=== PATIENT | female | born 1985 | race Caucasian/White ===

== ENCOUNTER 2021-06-21 14:29 | Outpatient (CLI) | payer BC, SELFPAY ==
[2021-06-21 15:25] LABS: Alanine Aminotransferase 34 U/L (4-35); Albumin Level 4.8 g/dL (3.5-5.1); Alkaline Phosphatase 80 U/L (38-126); Anion Gap 10 mmol/L (8-16); Aspartate Amino Transferase 31 U/L (14-36); Bilirubin,Total 0.4 mg/dL (0.2-1.3); Blood Urea Nitrogen 11 mg/dL (7-17); Calcium 9.3 mg/dL (8.4-10.2); Carbon Dioxide 23 mmol/L (22-30); Chloride 106 mmol/L (98-107); Cholesterol 219 mg/dL (0-200); Estimated Glomerular Filt Rate > 60; Glucose 105 mg/dL (65-110); HDL Direct 45 mg/dL; Sodium 139 mmol/L (137-145); Triglycerides 184 mg/dL (<150)
[2021-06-21 15:36] LABS: LDL Cholesterol Direct 140 mg/dL
== END 2021-06-21 14:30 | disposition home or self-care (01) ==
LOC: ANHLAB 14:34
PROVIDERS: PCP Family Medicine Adolescent Medicine; Visit Provider Physician Assistant
DX: F41.9 Anxiety disorder, unspecified (principal); Z13.220 Encounter for screening for lipoid disorders
CPT/HCPCS: 36415; 80053; 80061; 84443

== ENCOUNTER 2022-02-22 20:51 | Emergency (ER) | payer BC, SELFPAY ==
[2022-02-22 21:09] VITALS: BP 132/117; PULSE 89; RESP 16; TEMP 36.6; O2SAT 100
--- NOTE | 2022-02-22 21:23 | ED.DENTAL ---
HPI - Dental/Oral General Chief complaint: Allergic Reaction Stated complaint: possible allergic reaction-swelling Time Seen by Provider: 02/22/22 20:54 Source: patient, family and RN notes reviewed Mode of arrival: ambulatory Limitations: no limitations History of Present Illness Complaint: tooth pain Onset (ago): day(s) (3) Duration: constant Severity: mild Severity scale (1-10): 2 Relieving factors: NSAIDs Exacerbating factors: chewing Context: history of dental caries and poor dental care Associated symptoms: other (pt had left facial swelling, mild with no evident localized or generalized allergic sxs.) Related Data Home Medications Medication Instructions Recorded Confirmed amoxicillin 500 mg capsule 500 cap PO USEASDIRECTD 02/22/22 02/22/22 Allergies Allergy/AdvReac Type Severity Reaction Status Date / Time No Known Allergies Allergy Verified 02/22/22 21:17 Review of Systems Review of Systems: All systems reviewed & are unremarkable except as noted in HPI and below PMFSH Past Medical History Medical History Swelling of left side of face Toothache Exam Const: General: no acute distress and alert Nutritional Appearance: well nourished Orientation/consciousness: patient oriented x3 Limitations: no limitations HENMT: Head: normal to inspection Ears: external ears normal, TM's normal bilaterally and EAC's normal General nose exam: Normal external nose present and Normal nares present Face and sinus: sinuses nontender Mouth: Yes moist mucous membranes Teeth and gingiva: abnormal tooth and associated gingiva (multiple carious teeth. left facial swelling mild.) Throat: posterior oropharynx normal Eyes: Conjunctivae: conjunctivae normal Pupils: Equal, round and reactive pupils present EOM: EOMs intact bilaterally Neck: Neck: normal visual inspection and no lymphadenopathy Chest: Chest palpation & inspection: normal inspection of the chest Resp: Effort & Inspection: normal respiratory effort Auscultation: clear to auscultation bilaterally Cardio: Rate: regular rate Rhythm: regular rhythm GI: GI Palp: Yes Soft to palpation and No Tenderness to palpation present (GI) Auscultation: normal bowel sounds : General: Yes bladder normal to palpation and Yes no CVA tenderness Back/Spine/Pelvis: Back: no CVA tenderness Skin: General skin exam: normal color Rashes: no rashes Wounds: no wounds Neuro: General: patient oriented x3, moves all extremities, no meningeal signs, no focal motor deficits and CN's II-XI intact bilaterally Speech: normal speech Gait exam (Neuro): Normal gait present Extrem: General: normal to inspection, no clubbing, cyanosis or edema and no pedal edema Psych: Mental Status: mental status grossly normal Affect: normal affect Attitude: cooperative Course Course Emergency Course: Pt was stable in the ED. no allergic reaction. Reevaluation(s) Date: 02/22/22 Time: 21:12 Vital Signs Vital signs: Vital Signs Temperature 36.6 C 02/22/22 21:09 Pulse Rate 89 02/22/22 21:09 Respiratory Rate 16 02/22/22 21:09 Blood Pressure 132/117 H 02/22/22 21:09 Pulse Oximetry 100 02/22/22 21:09 Oxygen Delivery Room Air 02/22/22 21:09 Temperature 36.6 C 02/22/22 21:09 Pulse Rate 89 02/22/22 21:09 Respiratory Rate 16 02/22/22 21:09 Blood Pressure 136/92 H 02/22/22 21:55 Pulse Oximetry 100 02/22/22 21:09 Oxygen Delivery Room Air 02/22/22 21:09 Critical Care Time Critical Care Time Critical Care Time: No Total Critical Care Time: 0 Discharge Plan Discharge Clinical Impression: Toothache, Swelling of left side of face Patient Disposition: Home, Self-Care Condition: Stable Instructions: Antibiotic Form, Toothache (ED) Additional Instructions: Home. May RTC prn. Dentist or PMD in 1-2 days. Continue meds. Prescriptions: No Action amoxicillin 500 mg ca
[2022-02-22] MEDS: ACETAMINOPHEN 325 MG TABLET 650 MG PO (21:38)
[2022-02-22 21:55] VITALS: BP 136/92
== END 2022-02-22 22:05 | disposition home or self-care (01) ==
PROVIDERS: Emergency Provider Emergency Medicine; PCP Family Medicine Adolescent Medicine
DX: K08.89 Other specified disorders of teeth and supporting structures (principal); M79.89 Other specified soft tissue disorders
CPT/HCPCS: 99281; A9270

== ENCOUNTER 2024-06-17 08:25 | Outpatient (CLI) | payer BC, SELFPAY ==
--- NOTE | ~2024-06-17 | XR_ITS ---
EXAMINATION: XR hip LT min 2V DATE: 06/17/2024 08:52 INDICATION: Left hip pain. TECHNIQUE: 2 views of left hip were obtained. COMPARISON: None. FINDINGS: Alignment is normal. No fracture. There is mild left hip osteoarthritis. IMPRESSION: 1. Mild left hip osteoarthritis. Reviewed, dictated and finalized at location A.
== END 2024-06-17 08:26 | disposition home or self-care (01) ==
LOC: CHSIMG 08:28
PROVIDERS: PCP Physician Assistant; Visit Provider Physician Assistant
DX: M25.552 Pain in left hip (principal); M16.12 Unilateral primary osteoarthritis, left hip
CPT/HCPCS: 73502

== ENCOUNTER 2024-07-06 08:53 | Outpatient (CLI) | payer BC, SELFPAY ==
[2024-07-06 09:31] LABS: Basophils Absolute Auto 0.05 K/mm3 (0.00-0.10); Basophils Percent Auto 0.5 % (0.0-1.0); Eosinophils Absolute Auto 0.43 K/mm3 (0.02-0.50); Eosinophils Percent Auto 4.4 % (1.0-6.0); Hematocrit 42.8 % (35.0-49.0); Hemoglobin 14.3 g/dL (12.0-15.0); Immature Granulocyte Absolute 0.03 K/mm3 (0.00-0.00); Immature Granulocyte Percent A 0.3 % (0.0-0.0); Lymphocytes Absolute Auto 2.58 K/mm3 (1.10-4.50); Lymphocytes Percent Auto 26.5 % (18.0-42.0); Mean Corpuscular HGB Conc 33.4 g/dL (32-36); Mean Corpuscular Hemoglobin 31.6 pg (27.0-31.0); Mean Corpuscular Volume 94.7 fL (78.0-102.0); Mean Platelet Volume 9.1 fl (9.2-11.8); Monocytes Absolute Auto 0.66 K/mm3 (0.10-0.90); Monocytes Percent Auto 6.8 % (2.0-11.0); Neutrophils Absolute Auto 5.98 K/mm3 (1.70-7.20); Neutrophils Percent Auto 61.5 % (50.0-70.0); Platelet Count Result 340 K/mm3 (150-420); Red Blood Count 4.52 M/mm3 (4.20-5.40); White Blood Count 9.7 K/mm3 (4.8-10.8)
[2024-07-06 09:39] LABS: Hemoglobin A1C 5.3 % (<5.7)
[2024-07-06 10:17] LABS: Alanine Aminotransferase 30 U/L (14-59); Albumin Level 3.6 g/dL (3.4-5.0); Alkaline Phosphatase 99 U/L (46-116); Anion Gap 7 mmol/L (4-12); Aspartate Amino Transferase 15 U/L (15-37); Bilirubin,Total 0.6 mg/dL (0.00-1.00); Blood Urea Nitrogen 11 mg/dL (7-18); Carbon Dioxide 29 mmol/L (21-32); Chloride 101 mmol/L (98-108); Cholesterol 198 mg/dL (0-200); Estimated Glomerular Filt Rate > 60; Free T4 Free Thyroxine 0.82 ng/dL (0.76-1.46); Glucose 102 mg/dL (70-99); HDL Direct 59 mg/dL (40-60); LDL Cholesterol Calculated 115 mg/dL (<130); Osmolality Calculated 283 mOsm/kg (285-295); Potassium 4.4 mmol/L (3.5-5.1); Sodium 137 mmol/L (136-145); Thyroid Stimulating Hormone 2.36 uIU/mL (0.36-3.74); Total Protein 6.6 g/dL (6.4-8.2); Triglycerides 119 mg/dL (0-150)
== END 2024-07-06 08:54 | disposition home or self-care (01) ==
PROVIDERS: PCP Physician Assistant; Visit Provider Physician Assistant
DX: Z00.00 Encounter for general adult medical examination without abnormal findings (principal); Z13.29 Encounter for screening for other suspected endocrine disorder; Z13.220 Encounter for screening for lipoid disorders; Z13.1 Encounter for screening for diabetes mellitus
CPT/HCPCS: 36415; 80053; 80061; 83036; 84439; 84443; 85025

== ENCOUNTER 2025-03-08 15:02 | Outpatient (RCR) | payer BC, SELFPAY ==
--- NOTE | 2025-03-08 15:56 | OPREHPOC ---
Outpatient Therapy Plan of Care This is a Multidisciplinary Plan of Care that may contain components documented by all disciplines (PT, OT, and ST.) PT Problem 1 PT Problem #1 Knowledge Deficit PT Goal 1 Goal / Goal Update The patient will be independent in a home exercise program. Target Visit 4 PT Problem 2 PT Problem #2 Pain PT Goal 1 Goal / Goal Update The patient will report no greater than 3/10 left hip pain with prolonged standing and walking. Target Visit 12 PT Problem 3 PT Problem #3 Impaired Functional Mobility PT Goal 1 Goal / Goal Update The patient will demonstrate 20% or less self perceived disability per the LEFS questionnaire. The patient will tolerate 30 minutes of CKC activity with minimal left hip discomfort. The patient will ambulate 1,200 feet during 6 minute walk test. Target Visit 12 PT Problem 4 PT Problem #4 Impaired Range of Motion PT Goal 1 Goal / Goal Update The patient will demonstrate 30 degrees of left hip IR, 110 degrees of left hip flexion, and 40 degrees of hip abduction. PT Goal 2 Target Visit 12 PT Problem 5 PT Problem #5 Impaired Strength PT Goal 1 Goal / Goal Update The patient will demonstrate 4/5 or greater left hip strength. Target Visit 12
--- NOTE | 2025-03-08 15:56 | PTOPEVAL1 ---
Assessment and note entered by Dorothea Connelly, PT Evaluation Information Assessment Status Evaluation Diagnosis L trochanteric bursitis ICD-10 Condition Codes (PT) Pain in left hip M25.552 Other ICD-10 Condition Codes ( M70.62 PT) Subjective Information Shanel Mak reports she started having left hip pain about a year ago. She started having the pain after seeing a chiropractor and having adjustments. She went to Dr. Ordoñez and was diagnosed with bursitis. She was referred to PT. She notes increased pain when she steps wrong, standing for long periods, and occasionally she can not sleep. She notes pain on the side of the hip that will refer to her back and down to her knee. She is using heat, ice, topical creams, and OTC ibuprofen and tylenol. Reported Pain Level Pain Score 3: Self Report Assessment PT Clinical Summary Shanel Mak presents with left hip pain and has been diagnosed with trochanteric bursitis. She has difficulty with sitting or standing for long periods, walking, moving her hip certain directions, and sleeping. She objectively demonstrates decreased and painful left hip AROM, decreased left hip strength, tenderness at the left greater trochanter, and decreased hamstring flexibility. She will benefit from skilled PT to address these limitations. Plan of Care Interventions Electrical Stimulation,Hot Pack/Cold Pack,Manual Therapy,Neuro Re-education,Patient/Caregiver Education,Therapeutic Activities,Therapeutic Exercise PT Services Indicated Yes Treatment Frequency and 2 times a week for 12 visits Duration These treatments will address the objective and functional deficits as defined above. The patient will be advanced safely and appropriately in order for the patient to progress towards his/her prior level of function. Additional exercises will be introduced and as well as a comprehensive home exercise program upon discharge, if needed, ?to ensure carryover of functional gains achieved in the clinic. This treatment plan has been reviewed and agreement upon by the patient.
--- NOTE | 2025-05-10 08:53 | PCPTNOTE ---
Pt was last seen on 03/22/25 and has not returned. She is discharged from skilled PT. -Dorothea Connelly, PT
== END 2025-03-22 20:00 | disposition home or self-care (01) ==
LOC: CHSPT 15:02
PROVIDERS: Visit Provider Orthopaedic Surgery
DX: M70.62 Trochanteric bursitis, left hip (principal)
CPT/HCPCS: 97014; 97110; 97140; 97161; G0283

== ENCOUNTER 2025-08-09 10:08 | Outpatient (CLI) | payer BC, SELFPAY ==
[2025-08-09 10:21] LABS: Hematocrit 42.1 % (35.0-49.0); Hemoglobin 13.9 g/dL (12.0-15.0); Immature Granulocyte Percent A 0.4 % (0.0-0.0); Lymphocytes Absolute Auto 2.38 K/mm3 (1.10-4.50); Mean Corpuscular HGB Conc 33.0 g/dL (32-36); Mean Corpuscular Hemoglobin 31.7 pg (27.0-31.0); Mean Corpuscular Volume 96.1 fL (78.0-102.0); Nucleated Red Blood Cells Absolute Auto 0.00 K/mm3 (0.00-0.00); Nucleated Red Blood Cells Perc 0.0 % (0-0.0); Platelet Count Result 399 K/mm3 (150-420); Red Blood Count 4.38 M/mm3 (4.20-5.40); White Blood Count 11.1 K/mm3 (4.8-10.8)
[2025-08-09 10:33] LABS: Hemoglobin A1C 5.1 % (<5.7)
--- OUTSIDE RECORDS SUMMARY | 2025-08-09 10:39 | XMS_ITS | Clinical Summary ---
Author Organization [facility] Address [facility] [place] [address] Care Team Providers Care Program Clinician Name Role Phone Nelson Valdes MD Primary Care Provider [phone] Allergies No known active allergies Medications ibuprofen 600 MG tablet Take 600 mg by mouth every 6 (six) hours as needed for Pain. Active Naproxen Sodium 275 MG Tab Take 1 tablet by mouth 2 (two) times daily as needed. Active Active Problems No known active problems Resolved Problems Problem Noted Date Diagnosed Date Resolved Date Pseudogout of knee, left 06/23/201904/2019 Family History Medical History Relation Comments Anxiety Father Depression Father Heart Attack Father Thyroid Disease Father Anemia Mother Relation Status Comments Father Mother Social History Tobacco Use Types Packs/Day Years Used Date Smoking Tobacco: Every Day Cigarettes Smokeless Tobacco: Never Alcohol Use Standard Drinks/Week Comments Yes 0 (1 standard drink = 0.6 oz pur e alcohol) Comments Unknown Sex and Gender Information Value Date Recorded Sex Assigned at Not on file Legal Sex Female 1:39 PM CDT Gender Identity Female 06/22/2019 10:30 AM CDT Sexual Orientation Not on file Last Filed Vital Signs Vital Sign Reading Time Taken Comments Blood Pressure - - Pulse - - Temperature - - Respiratory Rate - - Oxygen Saturation - - Inhaled Oxygen Concentration - - Weight 70.3 kg (155 lb) 06/22/2019 10:31 AM CDT Height 154.9 cm (5' 1) 06/22/2019 10:31 AM CDT Body Mass Index 29.29 06/22/2019 10:31 AM CDT Plan of Treatment Health Maintenance Due Date Last Done Comments Cervical Cancer Screening Pa p Smear (Age 30 to 64) Every 3 Years 1984 Annual Physical 1987 Hepatitis C 2002 DTaP, Tdap and Td Vaccines ( 1 - Tdap) 2003 Hepatitis B Vaccines (1 of 3 - 19+ 3-dose series) 2003 HPV Vaccines (1 - 3-dose SCD M series) 2011 Cervical Cancer Screening Pa p with HPV Testing (Age 30 to 64) Every 5 Years 2014 Cervical Cancer Screening with HPV 2014 Mammogram Screening 2024 COVID-19 Vaccine ( - 2024-2 6 season) 2025 Influenza Adult (#1) 2025 Hepatitis A Vaccines Aged Out No long er eligible based on patient's age to complete this topic Meningococcal B Vaccine Aged Out No l onger eligible based on patient's age to complete this topic Meningococcal Vaccine Aged Out No nicolette gadiel eligible based on patient's age to complete this topic Pneumococcal Vaccine: Pediat rics (0 to 5 Years) and At-Risk Patients (6 to 49 Years) Aged Out No longer eligible b ased on patient's age to complete this topic RSV Immunizations Under 20 Months Aged Out No longer eligible based on patient's age to complete this topic Care Teams Program Clinician Relationship Specialty Start Date End Date Nelson Valdes MD [address] [place] [address] PCP - General INTERNAL MEDICINE 06/15/19
--- OUTSIDE RECORDS SUMMARY | 2025-08-09 10:39 | XMS_ITS | Clinical Summary ---
Author Organization [facility] [address] Address [address] [place] [address] Care Team Providers Care Steam Conditioner Operator Name Role Phone Addy Alvarado MD Primary Care Prov ider Social History Tobacco Use Types Packs/Day Years Used Date Smoking Tobacco: Never Assessed Personal Safety Answer Date Recorded Getting School Help Needed Not on file 12/13 Comments Unknown Sex and Gender Information Value Date Recorded Sex Assigned at Not on file Legal Sex Female 2:42 PM CDT Gender Identity Not on file Sexual Orientation Not on file Plan of Treatment Not on file Insurance [facility] Care Teams Steam Conditioner Operator Relationship Specialty Start Date End Date Addy Alvarado MD PCP - General Family Medicine 06/12/21
--- OUTSIDE RECORDS SUMMARY | 2025-08-09 10:39 | XMS_ITS | Data Portability ---
Author Organization [facility] Address [address] [place] [address] Assessment Encounter Date Assessment Date Assessment LastModified by Organization Details LastModified Time 07/25/2025 07/25/2025 Annual gynecological exam performed. Patient will come back in a year unless there are new symptoms. 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 (Lab), [address] [facility], [place], [address], 07/29/2025 12:23:49 Referral None recorde d. Procedures None recorde d. Surgeries None recorde d. Imaging MAMMO, screeni ng, digital , bilater al 2024 025 [facility], [address] [place], [address], 08/01/2025 04:04:03 Medication Orders None recorde d. Patient TargetsNo targets recorded. Patient InstructionsNo instructions recorded. Reason for Referral None Reported. Problems Name Problem SNOMED Code Status Onset Date Resolution Date Notes Provider Name and Address Organization Details Recorded Time Specializ ed medical examinati on Active 2012 Gynecologi marilu Examinatio n;Recorded Elsewhere: No Locatio n: [facility] rce: EHR Chroni c: N Practice ID: 0001 Billa ble Time: 10:45:00 AM Not Available [facility] 0 21:54:27 Screening for malignant neoplasm of cervix Active 2012 Screening for malignant neoplasms of the cervix;Rec orded Elsewhere: No Locatio n: [facility] rce: EHR Chroni c: N Practice ID: 0001 Billa ble Time: 10:45:00 AM Not Available [facility] 0 21:54:27 test positive 963947171 Active 2012 examinatio n or test, positive result;Rec orded Elsewhere: No Locatio n: [facility] rce: EHR Chroni c: N Practice ID: 0001 Billa ble Time: 10:45:00 AM Not Available [facility] 0 21:54:27 Ultrasono graphy Active 2012 screening for malformati on using ultrasonic s;Recorded Elsewhere: No Locatio n: [facility] rce: EHR Chroni c: N Practice ID: 0001 Billa ble Time: 10:30:00 AM Not Available [facility] 0 21:54:26 screening Active 2012 screening for malformati on using ultrasonic s;Recorded Elsewhere: No Locatio n: [facility] rce: EHR Chroni c: N Practice ID: 0001 Billa ble Time: 10:30:00 AM Not Available [facility] 0 21:54:26 Congenita l malformat ion 403453516 Active 2012 screening for malformati on using ultrasonic s;Recorded Elsewhere: No Locatio n: [facility] rce: EHR Chroni c: N Practice ID: 0001 Billa ble Time: 10:30:00 AM Not Available [facility] 0 21:54:26 Poor growth affecting managemen t 009296289 Active 2013 GROWTH POOR SGA;Practi ce ID: 0001 Not Available [facility] 0 21:54:25 Routine care Active 2013 Supervisio n of other normal ; Practice ID: 0001 Not Available [facility] 0 21:54:25 Uterine scar from previous surgery in , childbirt h and the puerperiu m - delivered 261915411 Active 2013 Previous delivery, antepartum condition or complicati on;Practic e ID: 0001 Not Available [facility] 0 21:54:26 Procedure on genitouri nary system Active 2013 Sterilizat tucker;Bjti ce ID: 0001 Not Available [facility] 0 21:54:26 Single live from [place] 892108623 Active 2013 Mother with single liveborn;Claudette mohamud ID: 0001 Not Available [facility] 0 21:54:26 Postopera tive follow-up visit Active 2013 Follow-up examinatio n, following other surgery;Pr actice ID: 0001 Not Available [facility] 0 21:54:26 Postpartu m care Active 2013 follow-up; Practice ID: 0001 Not Available [facility] 0 21:54:[address] Concept Active 2016 Encntr for ob/gyn nurse exam (general) (routine) w/o abn findings;Claudette mohamud ID: 0001 Not Available [facility] 0 21:54:26 Finding of pattern of menstrual cycle Active 2016 Irregular interval between menstrual bleeding;R ecorded Elsewhere: No Locatio n: [facility] rce: EHR Chroni c: N Practice ID: 0001 Billa ble Time: 03:00:00 PM Not Available [facility] 0 21:54:[address] Concept Active 2016 Encntr for general adult medical exam w/o abnormal findings;R ecorded Elsewhere: No Locatio n: [facility] rce: EHR Chroni c: N Practice ID: 0001 Billa ble Time: 03:00:00 PM Not Available [facility] 0 21:54:27 Finding of pattern of menstrual cycle Active 2016 Other specified irregular menstruati on;Practic e ID: 0001 Not Available [facility] 0 21:54:26 Problem Notes None recorded. Procedures Surgical History Date Name Laterality Status Provider Name and Address Organization Details Recorded Time 12/06/19 17 Date of Last Pap Smear completed Mindy Molina [facility] 03/31/2023 15:02:25 01/20/20 14 section completed [facility] 07/25/2025 16:48:13 03/19/20 06 Caesarean Section completed [facility] 07/25/2025 16:48:02 09/29/19 00 cholecystectomy completed [facility] 07/25/2025 16:45:07 LEEP completed [facility] 07/25/2025 16:45:14 Imaging Results None recorded. Procedure Notes None recorded. Medical Equipment None Reported. Allergies No known drug allergies Medications Name Sig Start Date Stop Date Status Note LastModified by Organization Details LastModified Time Metrogel Vaginal 0.75 % (37.5 mg/5 gram) insert 1 applicat orful by vaginal route for 5 nights at bedtime 07/25 completed [facility] ed Elsewher e: No Locat ion: [facility] odify By: abe mills DateTime : 12/10/19 17 02:46:48 PM Not Available Not Available Not Available Flagyl 500 mg tablet take 1 tablet (500MG) by oral route every 12 hours for 7 days 06/22 completed Prescrib ed Elsewher e: No Locat ion: [facility]ify By: tania harrison DateTime : 06/16/20 13 10:45:00 AM Not Available Not Available Not Available Vitamin D2 1,250 mcg (50,000 unit) capsule take 1 capsule (20147HR ITS) by oral route every week 01/27 completed Prescrib ed Elsewher e: No Locat ion: [facility]ify By: amkuhl E ncounter DateTime : 07/23/20 03:14:28 PM Not Available Not Available Not Available buspirone active Not Available Not Hilda ilable Not Available take 1 tablet by oral route every day 01/27 completed Prescrib aura Carson e: Yes Loca tion: [facility] By: adminnew Encount er DateTime : 06/16/20 13 10:45:00 AM Not Available Not Available Not Available Vitals Date Recorded Body height Body mass index (BMI) Body weight Systolic And Diastolic Provider Name and Address Organization Details Last Updated DateTime 07/25/2025 157.48 cm 28.5 kg/m2 44649.69 g 135/93 mm[Hg] Josefa Melvin [facility] 07/25/2025 16:39:34 Social History Question Answer Notes LastModified by Organizat ion Details LastModified Time Tobacco Smoking Status Current Every Day Smoker Josefa Melvin [facility] 07/25/2025 16:43:37 Do You Have An Advance Directive? No [email or web address] Information not available 07/25/2025 Are You Blind Or Do You Have Difficulty Seeing? No Information not available 07/25/2025 What Is Your Level Of Caffeine Consumption? Occasional [email or web address] Information not available 07/25/2025 In The 14 Days Before Symptom Onset, Have You Had Close Contact With A Laboratory-conf irmed COVID-19 While That Case Was Ill? No [email or web address] Information not available 07/25/2025 Have You Been To An Area Known To Be High Risk For COVID-19? No Information not available 07/25/2025 Are You Deaf Or Do You Have Serious Difficulty Hearing? No [email or web address] Information not available 07/25/2025 What Type Of Diet Are You Following? REGULAR [email or web address] Information not available 07/25/2025 What Is The Highest Grade Or Level Of School You Have Completed Or The Highest Degree You Have Received? [id number] [email or web address] Information not available 07/25/2025 Do You Use Your Seat Belt Or Car Seat Routinely? Yes [email or web address] Information not available 07/25/2025 Are You Sexually Active? Yes [email or web address] Information not available 07/25/2025 Do You Have Smoke And Carbon Monoxide Detectors In Your Home? Yes [email or web address] Information not available 07/25/2025 Do You Use Sunscreen Routinely? Yes [email or web address] Information not available 07/25/2025 How Many Years Have You Smoked Tobacco? 20 Information not available 07/25/2025 Do You Have Difficulty Walking Or Climbing Stairs? No [email or web address] Information not available 07/25/2025 Sex: Unknown Functional Status Question Answer Note LastModified by Organizat ion Details LastModified Time What is your level of alcohol consumption? 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 YESWOREST Information not available 07/25/2025 Are you able to care for yourself independently? Yes [email or web address] Information not available 07/25/2025 Do you have difficulty dressing, bathing, grooming, or toileting? No Information not available 07/25/2025 Mental Status Question Answer Note LastModified by Organization D etails LastModified Time Do you feel stressed (tense, restless, nervous, or anxious, or unable to sleep at night)? [id number] Information not available 07/25/2025 Family History Relationship Description Onset Age of this Age Resolved Age Notes LastModified by Organization Details LastModified Time Father Heart disease [email or web address] Not available 2024 16:48:50 Father Hypercholest erolemia Not available 2024 16:49:14 Father Hypertensive disorder [email or web address] Not available 2024 16:49:20 Maternal Aunt Diabetes mellitus [email or web address] Not available 2024 16:49:04 Maternal Aunt Disorder of thyroid gland [email or web address] Not available 2024 16:49:53 Mother Cyst of ovary [email or web address] Not available 2024 16:49:28 Mother Disorder of thyroid gland Not available 2024 16:49:53 Maternal Grandmother Disorder of thyroid gland [email or web address] Not available 2024 16:49:53 Sister Disorder of thyroid gland [email or web address] Not available 2024 16:49:53 Maternal Uncle Disorder of thyroid gland Not available 2024 16:49:53 Medical History Condition Response Allergies (Food, seasonal, environmental ) N Other N Breast Cancer N Drug/Latex Allergies/Reactions N Blood Transfusion N Lung Disease N Dermatologic Disorders N Defects or Inherited Disease N Breast Problem N Gestational Diabetes N Hematologic disorders N Anesthesia Complications N History of STI N Deep Vein Thrombosis N Polycystic ovary syndrome N Anxiety Disorder N Autoimmune disease N Arthritis N Infertility N Polyps N Acid Reflux (GERD) N History of abnormal pap N Cancer N Stroke N Varicosities N Neurologic/Epilepsy N Endometriosis N High Cholesterol N Headaches N Fibromyalgia N Kidney Disease N Heart Problems N Kidney or Bladder Problems N Thyroid Problems N GI Problems N Eating Disorder N Anemia N Art (IVF or FET) N Psychiatric Illness N Ovarian Cancer N Diabetes N Pulmonary (TB, Asthma) N Hepatitis/Liver Disease N No Past Medical History N Eczema N Urinary Tract Infection N Abuse/Domestic Violence N Asthma N Trauma/Violence N Depression/ depression N Heart Disease N Pre-Eclampsia N Hypertension N Osteoporosis N Thrombophilias N Gynecological History Statement/Question Response Abnormal Pap Y Flow Moderate Date of Last Mammogram Date of LMP 07/17/2025 Was last menstrual period normal Y STIs/STDs N Duration of Flow (days) 4 Current Control Method Tubal Ligat ion Age at First Child 20 Are cycles usually normal Y Date of Last Colonoscopy Sexually Active? Y Menses Monthly Y Date of DEXA bone scan Age of first menstrual cycle 13 Date of Last Pap Smear 12/05/2016 Sexual Problems? Y LMP Definite Obstetrics History GPAL:G 2 P 2 0 0 2 Type Value Full Term 2 Living 2 Total 2 Past Encounters Encounter ID Performer Location Encounter Start Date Encounter Closed Date Diagnosis/Indication Diagnosis SNOMED-CT Code Diagnosis ICD10 Code Diagnosis IMO Codes Diagnosis Note [id number] KP ANAYA NP [facility] [address] [address] 07/25/2025 16:16:47 07/25/2025 17:23:30 Well woman health examination 387483297 Z01.419 [id number] Annual gynecologi marilu exam performed. Patient will come back in a year unless there are new symptoms. Suggest Calcium with Vitamin D if not eating in diet. Patient advised to get annual flu shot. Recommend yearly physicals and perform monthly breast exams. Genetic testing is available for patients with family history of cancer. Engage in safe sexual practices, use condoms. Encouraged to have daily exercise. Avoid tobacco and illicit drugs, moderation of alcohol. If BMI greater than 25 dietary consult advised. If you have any questions please call or email. mammogram- ordered; pt to schedule colon cancer screening - n/a DEXA scan- n/a Pap smear- pap w/ HPV collected laboratory evaluation - PCP ordered STI testing - declined Irregular periods 692133 07 N92.6 [id number] Discussed that irregular periods can occur during niyah-menop ause.Pelvi c ultrasound ordered for further evaluation and r/o uterine and ovarian abnormalit ies. Will f/u with results.PC P ordered basic annual labs.Patie nt will follow-up if bleeding irregulari ty persists, or if additional symptoms develop. Screening mammography 24 328872 Z12.31 [id number] Pain in fe male genitalia on intercourse 19831370 N94.10 [id number] Discussed common possible causes of dyspareuni a, such as infection, vaginal dryness, and positionin g during intercours e.Recommen ded comfortabl e positions during intercours e and using lubricatio n as needed.Carlos l r/o vaginal infection with pap. Patient declined STI testing. Health Concerns Section Related Observation LastModified by Organization Detai ls LastModified Time None Recorded Concern Status LastModified by Organization Details LastModified Time None Recorded Advance Directives Directive N: Payers Insurance Date Sequence Insurance Name Policy Number Policy Samano Covered Member ID Samano Member ID Guarantor Name 08/06/2025 1 [place] [id number] Shanel Aubree [id number] Shanel Mak Notes Date Note Type Note Provider Name and Address Organization Details Recorded Time 5 text/html Annual GYNReported by PatientGenitourinary symptomsFor menstrual cycle, patient reportsirregular cycle intervals (every 2-4 weeks). For urinary symptoms, patient reportsno hematuriaandno incontinence. For vulva, patient reportsno genital lesion. For vagina, patient reportsnormal vaginal discharge.Breast symptomsFor breast, patient reportsno breast pain,no breast lump, andno nipple discharge.ContraceptionFo r current contraception, patient reportstubal ligation.Endocrine symptomsFor sexual complaints, patient reportspain during intercoursebut reportsno sexual complaintsandnormal libido. For menopausal symptoms, patient reportsno menopausal symptomsandnormal vaginal lubrication.Psychological symptomsFor psychological symptoms, patient reportsno depression,no anxiety, andno pmdd.Preventative measuresFor preventive measures, patient reportsencourage self breast examination,encourage regular exercise,encourage no tobacco use,encourage regular mammograms starting age 40, andfollowed with yearly pap smears. New patient presents to establish care.Patient reports irregular periods for the past year, every 14-30 days, last 4-5 days with moderate flow.Hx tubal ligation.Patient also c/o pelvic pain during intercourse for several months. Denies new partners; denies vaginal discharge/odor/itching. Denies vaginal dryness. Josefa Melvin [facility] 07/25/2025 17:54:11 OBGyn Episode Ob Episode Information Episode Created Date Number of Fetuses Patient Bloodtype Patient rh Status Prepregnancy Weight lbs Domestic Partner Domestic Partner Phone Father Name Rabbit Breeder Status 03/31/20 23 1 CLOSED Fetus Data First Name Last Name Admitted to NICU Weight (g) Sex Living Outcome Pediatric Complications Fetus ID Race Codes Race Delivery Type 2551.45 5 M Full Term [id number] Repeat Joe Calculation Initial Joe Date Initial Exam Date Initial Exam Provider Initial Ultrasound Date Last Menstrual Period Date Ultra Sound Weeks Gestation 0 Eighteen To Twenty Week Joe Update Ultra Sound Date Fundal Height At Umbil Quickening Date Ultra Sound Latest Weeks Gestation Final Joe Confirmed By Final Joe Confirmed Date Final Joe Date Ultra Sound Latest Days Gestation 0 0 Menstrual History Last Menstrual Date Menses Monthly On Bcp Conception Prior Menses Frequency Hcg Plus Date Menarche Onset Age Delivery Information Delivery Date Delivery Type Labor Anesthesia Weeks Gestation Incision Type Labor Labor Length Hrs Delivered By Post Complications Tubal Sterilization Discharge Date Comments 4 39 Romulo IUGR Discharge Information Feeding Method Contraceptive Method Maternal HG B and HCT Levels Ob Episode Information Episode Created Date Number of Fetuses Patient Bloodtype Patient rh Status Prepregnancy Weight lbs Domestic Partner Domestic Partner Phone Father Name Rabbit Breeder Status 03/31/20 23 1 CLOSED Fetus Data First Name Last Name Admitted to NICU Weight (g) Sex Living Outcome Pediatric Complications Fetus ID Race Codes Race Delivery Type 3118.44 5 F Full Term Primary Joe Calculation Initial Joe Date Initial Exam Date Initial Exam Provider Initial Ultrasound Date Last Menstrual Period Date Ultra Sound Weeks Gestation 0 Eighteen To Twenty Week Joe Update Ultra Sound Date Fundal Height At Umbil Quickening Date Ultra Sound Latest Weeks Gestation Final Joe Confirmed By Final Joe Confirmed Date Final Joe Date Ultra Sound Latest Days Gestation 0 0 Menstrual History Last Menstrual Date Menses Monthly On Bcp Conception Prior Menses Frequency Hcg Plus Date Menarche Onset Age Delivery Information Delivery Date Delivery Type Labor Anesthesia Weeks Gestation Incision Type Labor Labor Length Hrs Delivered By Post Complications Tubal Sterilization Discharge Date Comments 6 40 Aniyah Discharge Information Feeding Method Contraceptive Method Maternal HG B and HCT Levels
[2025-08-09 11:06] LABS: Alanine Aminotransferase 32 U/L (6-35); Albumin Level 4.8 g/dL (3.5-5.1); Alkaline Phosphatase 64 U/L (38-126); Anion Gap 7 mmol/L (4-12); Aspartate Amino Transferase 38 U/L (14-36); Blood Urea Nitrogen 11 mg/dL (7-17); Calcium 9.9 mg/dL (8.4-10.2); Carbon Dioxide 27 mmol/L (22-30); Chloride 106 mmol/L (98-107); Cholesterol 248 mg/dL (0-200); Estimated Glomerular Filt Rate > 60; Glucose 95 mg/dL (65-110); HDL Direct 69 mg/dL; Osmolality Calculated 289 mOsm/kg (285-295); Potassium 4.5 mmol/L (3.4-5.0); Sodium 140 mmol/L (137-145); Total Protein 7.3 g/dL (6.3-8.2); Triglycerides 187 mg/dL (<150)
[2025-08-09 11:22] LABS: Free T4 Free Thyroxine 1.19 ng/dL (0.78-2.19)
[2025-08-09 11:36] LABS: Thyroid Stimulating Hormone 1.820 uIU/mL (0.465-4.680)
[2025-08-16 13:16] LABS: Bilirubin,Total 0.5 mg/dL (0.2-1.3)
== END 2025-08-09 10:09 | disposition home or self-care (01) ==
LOC: CHSLAB 10:09
PROVIDERS: PCP Physician Assistant; Visit Provider Physician Assistant
DX: Z00.00 Encounter for general adult medical examination without abnormal findings (principal); Z13.220 Encounter for screening for lipoid disorders; Z13.29 Encounter for screening for other suspected endocrine disorder; Z13.1 Encounter for screening for diabetes mellitus
CPT/HCPCS: 36415; 80053; 80061; 83036; 84439; 84443; 85025

== ENCOUNTER 2025-09-02 13:23 | Outpatient (CLI) | payer BC, SELFPAY ==
--- NOTE | ~2025-09-02 | MM_ITS ---
EXAMINATION: MM screening anastasia BI w vladimir HISTORY: Screening. TECHNIQUE: Craniocaudal and mediolateral oblique 3-D tomosynthesis images were obtained and synthetic 2-D images were generated. CAD analysis was submitted and interpreted. COMPARISON: None available. BREAST PARENCHYMAL COMPOSITION: Not Dense: There are scattered areas of fibroglandular FINDINGS: No suspicious masses are seen. There are no suspicious calcifications. No unexplained architectural distortion is seen. There are no skin or nipple abnormalities identified. There is no adenopathy seen on the images submitted. IMPRESSION: No mammographic or sonographic evidence to suggest malignancy is seen. The patient may return to screening mammography as per ACR guidelines. BI-RADS 1 - Negative. Reviewed, dictated and finalized at location B. LOPE ADJUSTER IMPRESSION: No mammographic or sonographic evidence to suggest malignancy is seen. The lina ent may return to screening mammography as per ACR guidelines. BI-RADS 1 - Negative.
== END 2025-09-02 13:24 | disposition home or self-care (01) ==
PROVIDERS: PCP Physician Assistant; Visit Provider Physician Assistant
DX: Z12.31 Encounter for screening mammogram for malignant neoplasm of breast (principal)
CPT/HCPCS: 77063; 77067